=== PATIENT | male | born 1960 | race Caucasian/White ===

== ENCOUNTER 2017-06-16 01:11 | Day surgery (SDC) | payer MEDICARE, OTHER ==
[~2017-06-16 01:11] MED LIST: AMIT50 PO; ASCO1ER PO; ATOR20 PO; CIME300 PO; FLAX PO; FLONASE ALLERG9.9 ML NS; Folic Acid0.8 MG PO; GABA600 PO; GLIP5 PO; HYDCHL25 PO; HYDR1TAB94 PO; IBUP800 PO; INFLECTRA100 MG IV; LISHYD2012 PO; LISHYD2025 PO; METF500 PO; METTREX2.5 PO; MULT50L PO; MULVITMIND PO; NIAC500ER PO; OXYACE5T PO; Omeprazole20 M1 PO; PROM25 PO; Remicade100 MG IV; SULF500 PO; TOCO1000 PO; Tylenol325 MG PO; VITB100 PO; WATER PILL
== END 2017-06-16 10:08 | disposition home or self-care (01) ==
LOC: ATC 01:11
DX: L40.52 Psoriatic arthritis mutilans (principal); I10 Essential (primary) hypertension; E11.9 Type 2 diabetes mellitus without complications
CPT/HCPCS: 96375; 96413; J1745; J2930; J7050; Q0163; Q5102-ZB

== ENCOUNTER 2017-07-21 00:19 | Day surgery (SDC) | payer MEDICARE, OTHER ==
[2017-07-21] MEDS ORDERED: Remicade100 MG IV (08:16)
[2017-07-21] MEDS ORDERED: DIPH50 PO (08:23)
[2017-07-21] MEDS ORDERED: SOLU-MEDRO125 MG/2 M IV (08:24)
== END 2017-07-21 09:31 | disposition home or self-care (01) ==
LOC: ATC 00:19
DX: L40.52 Psoriatic arthritis mutilans (principal); I10 Essential (primary) hypertension; E11.9 Type 2 diabetes mellitus without complications
CPT/HCPCS: 96375; 96413; J1745; J2930; J7050; Q0163

== ENCOUNTER 2017-08-25 00:46 | Day surgery (SDC) | payer MEDICARE, OTHER ==
[~2017-08-25 00:46] MED LIST changes: +DIPH50 PO; +SOLU-MEDRO125 MG/2 M IV
== END 2017-08-25 09:40 | disposition home or self-care (01) ==
LOC: ATC 00:46
DX: L40.52 Psoriatic arthritis mutilans (principal); I10 Essential (primary) hypertension; E11.9 Type 2 diabetes mellitus without complications
CPT/HCPCS: 96375; 96413; J1745; J2930; J7050; Q0163

== ENCOUNTER 2017-10-13 11:37 | Day surgery (SDC) | payer MEDICARE, OTHER ==
[~2017-10-13] VITALS: Ht 180.3 cm; Wt 113.0 kg
== END 2017-10-13 13:46 | disposition home or self-care (01) ==
LOC: ORSCSDS 11:37
PROVIDERS: Internal Medicine Gastroenterology
PROC: 0DBN8ZX Excision of Sigmoid Colon, Via Natural or Artificial Opening Endoscopic, Diagnostic (ICD-10-PCS; principal; 2017-10-13 13:00)
PROC: 0DBK8ZX Excision of Ascending Colon, Via Natural or Artificial Opening Endoscopic, Diagnostic (ICD-10-PCS; principal; 2017-10-13 13:00)
PROC: 0DBE8ZX Excision of Large Intestine, Via Natural or Artificial Opening Endoscopic, Diagnostic (ICD-10-PCS; principal; 2017-10-13 13:00)
PROC: 0DBL8ZX Excision of Transverse Colon, Via Natural or Artificial Opening Endoscopic, Diagnostic (ICD-10-PCS; principal; 2017-10-13 13:00)
DX: R19.7 Diarrhea, unspecified (principal); D12.2 Benign neoplasm of ascending colon; D12.3 Benign neoplasm of transverse colon; D12.5 Benign neoplasm of sigmoid colon; K52.832 Lymphocytic colitis; K64.8 Other hemorrhoids; K57.30 Diverticulosis of large intestine without perforation or abscess without bleeding; E11.40 Type 2 diabetes mellitus with diabetic neuropathy, unspecified; I10 Essential (primary) hypertension; E78.5 Hyperlipidemia, unspecified; G47.33 Obstructive sleep apnea (adult) (pediatric); F41.8 Other specified anxiety disorders; M06.9 Rheumatoid arthritis, unspecified; F17.210 Nicotine dependence, cigarettes, uncomplicated; Z79.84 Long term (current) use of oral hypoglycemic drugs; Z79.899 Other long term (current) drug therapy; E66.9 Obesity, unspecified; Z68.39 Body mass index [BMI] 39.0-39.9, adult
CPT/HCPCS: 82947; 88305; J2250; J7120

== ENCOUNTER 2017-11-03 00:37 | Day surgery (SDC) | payer MEDICARE, OTHER ==
[2017-11-03] MEDS ORDERED: BUDE.25 PO (07:58)
== END 2017-11-03 09:36 | disposition home or self-care (01) ==
LOC: ATC 00:37
DX: L40.52 Psoriatic arthritis mutilans (principal); I10 Essential (primary) hypertension; E11.9 Type 2 diabetes mellitus without complications
CPT/HCPCS: 96375; 96413; J1745; J2930; J7050; Q0163

== ENCOUNTER 2018-06-01 00:08 | Day surgery (SDC) | payer MEDICARE, OTHER ==
[~2018-06-01 00:08] MED LIST changes: +BUDE.25 PO
== END 2018-06-01 09:15 | disposition home or self-care (01) ==
LOC: ATC 00:08
DX: L40.52 Psoriatic arthritis mutilans (principal); I10 Essential (primary) hypertension; E11.9 Type 2 diabetes mellitus without complications; Z79.84 Long term (current) use of oral hypoglycemic drugs
CPT/HCPCS: 96375; 96413; J1745; J2930; J7050; Q0163

== ENCOUNTER 2018-07-06 00:01 | Day surgery (SDC) | payer MEDICARE, OTHER ==
[2018-07-06] MEDS ORDERED: Co Q-10100 MG PO (08:17)
[2018-07-06] MEDS ORDERED: ASPI81CH PO (08:18)
[2018-07-06] MEDS ORDERED: ATOR20 PO (08:19)
== END 2018-07-06 08:30 | disposition home or self-care (01) ==
LOC: ATC 00:01
DX: L40.52 Psoriatic arthritis mutilans (principal); I10 Essential (primary) hypertension; E11.9 Type 2 diabetes mellitus without complications; Z79.84 Long term (current) use of oral hypoglycemic drugs
CPT/HCPCS: 96375; 96413; J1745; J2930; J7050; Q0163

== ENCOUNTER 2018-11-23 00:09 | Day surgery (SDC) | payer MEDICARE, OTHER ==
[~2018-11-23 00:09] MED LIST changes: +ASPI81CH PO; +Co Q-10100 MG PO; +Metformin HCl500 MG PO; +Tylophen500 MG PO; +ZESTRIL40 MG PO; +Zestril30 MG PO
== END 2018-11-23 09:28 | disposition home or self-care (01) ==
LOC: ATC 00:09
DX: L40.52 Psoriatic arthritis mutilans (principal); I10 Essential (primary) hypertension; E11.9 Type 2 diabetes mellitus without complications; K76.0 Fatty (change of) liver, not elsewhere classified
CPT/HCPCS: 96375; 96413; J1745; J2930; J7050; Q0163

== ENCOUNTER 2018-12-28 00:04 | Day surgery (SDC) | payer MEDICARE, OTHER | END 2018-12-28 09:28 | disposition home or self-care (01) | LOC: ATC 00:04 | DX: L40.52 Psoriatic arthritis mutilans (principal); I10 Essential (primary) hypertension; E11.9 Type 2 diabetes mellitus without complications; Z79.84 Long term (current) use of oral hypoglycemic drugs; Z79.899 Other long term (current) drug therapy | CPT/HCPCS: 96375; 96413; J1745; J2930; J7050; Q0163 ==

== ENCOUNTER 2019-02-01 00:19 | Day surgery (SDC) | payer MEDICARE, OTHER | END 2019-02-01 09:17 | disposition home or self-care (01) | LOC: ATC 00:19 | DX: L40.52 Psoriatic arthritis mutilans (principal); I10 Essential (primary) hypertension; E11.9 Type 2 diabetes mellitus without complications | CPT/HCPCS: 96374; 96375; 96413; J1745; J2930; J7050; Q0163 ==

== ENCOUNTER 2019-03-08 00:10 | Day surgery (SDC) | payer MEDICARE, OTHER | END 2019-03-08 09:30 | disposition home or self-care (01) | LOC: ATC 00:10 | DX: L40.52 Psoriatic arthritis mutilans (principal); I10 Essential (primary) hypertension; E11.9 Type 2 diabetes mellitus without complications | CPT/HCPCS: 96374; 96375; 96413; J1745; J2930; J7050; Q0163 ==

== ENCOUNTER 2019-05-17 00:16 | Day surgery (SDC) | payer MEDICARE, OTHER | END 2019-05-17 10:52 | disposition home or self-care (01) | LOC: ATC 00:16 | DX: L40.52 Psoriatic arthritis mutilans (principal); I10 Essential (primary) hypertension; E11.9 Type 2 diabetes mellitus without complications; Z79.82 Long term (current) use of aspirin; Z79.84 Long term (current) use of oral hypoglycemic drugs; Z79.899 Other long term (current) drug therapy | CPT/HCPCS: 96375; 96413; J1745; J2930; J7050; Q0163 ==

== ENCOUNTER 2019-06-21 00:08 | Day surgery (SDC) | payer MEDICARE, OTHER | END 2019-06-21 09:41 | disposition home or self-care (01) | LOC: ATC 00:08 | DX: L40.50 Arthropathic psoriasis, unspecified (principal); I10 Essential (primary) hypertension; E11.9 Type 2 diabetes mellitus without complications; Z79.82 Long term (current) use of aspirin; Z79.84 Long term (current) use of oral hypoglycemic drugs; Z79.899 Other long term (current) drug therapy; Z88.6 Allergy status to analgesic agent | CPT/HCPCS: 96375; 96413; J1745; J2930; J7050; Q0163 ==

== ENCOUNTER 2019-08-30 00:05 | Day surgery (SDC) | payer MEDICARE, OTHER | END 2019-08-30 09:40 | disposition home or self-care (01) | LOC: ATC 00:05 | DX: L40.52 Psoriatic arthritis mutilans (principal); I10 Essential (primary) hypertension; E11.9 Type 2 diabetes mellitus without complications; K76.0 Fatty (change of) liver, not elsewhere classified; Z79.84 Long term (current) use of oral hypoglycemic drugs; Z79.899 Other long term (current) drug therapy | CPT/HCPCS: 96375; 96413; J1745; J2930; J7050; Q0163 ==

== ENCOUNTER 2019-11-08 | Day surgery (SDC) | payer MEDICARE, OTHER ==
[~2019-11-08] MED LIST changes: +ACET500 PO; +Hair, Skin & N1 EACH PO; -MULVITMIND PO; -Tylophen500 MG PO
== END 2019-11-08 10:00 | disposition home or self-care (01) ==
LOC: ATC
DX: L40.52 Psoriatic arthritis mutilans (principal); I10 Essential (primary) hypertension; E11.9 Type 2 diabetes mellitus without complications; Z79.84 Long term (current) use of oral hypoglycemic drugs; Z79.82 Long term (current) use of aspirin; Z79.899 Other long term (current) drug therapy
CPT/HCPCS: 96375; 96413; J1745; J2930; J7050; Q0163

== ENCOUNTER 2020-02-21 00:15 | Day surgery (SDC) | payer MEDICARE, OTHER | END 2020-02-21 09:50 | disposition home or self-care (01) | LOC: ATC 00:15 | DX: L40.52 Psoriatic arthritis mutilans (principal); I10 Essential (primary) hypertension; E11.9 Type 2 diabetes mellitus without complications; Z79.899 Other long term (current) drug therapy; Z79.82 Long term (current) use of aspirin; Z79.84 Long term (current) use of oral hypoglycemic drugs | CPT/HCPCS: 96375; 96413; J1745; J2930; J7050; Q0163 ==

== ENCOUNTER 2020-03-27 00:34 | Day surgery (SDC) | payer MEDICARE, OTHER | END 2020-03-27 09:35 | disposition home or self-care (01) | LOC: ATC 00:34 | DX: L40.52 Psoriatic arthritis mutilans (principal); I10 Essential (primary) hypertension; E11.9 Type 2 diabetes mellitus without complications; Z79.84 Long term (current) use of oral hypoglycemic drugs; Z79.899 Other long term (current) drug therapy; Z79.82 Long term (current) use of aspirin | CPT/HCPCS: 96375; 96413; J1745; J2930; J7050; Q0163 ==

== ENCOUNTER 2020-05-01 00:48 | Day surgery (SDC) | payer MEDICARE, OTHER | END 2020-05-01 09:28 | disposition home or self-care (01) | LOC: ATC 00:48 | DX: L40.52 Psoriatic arthritis mutilans (principal); I10 Essential (primary) hypertension; E11.9 Type 2 diabetes mellitus without complications; K76.0 Fatty (change of) liver, not elsewhere classified; Z79.84 Long term (current) use of oral hypoglycemic drugs; Z79.52 Long term (current) use of systemic steroids; Z79.82 Long term (current) use of aspirin; Z79.899 Other long term (current) drug therapy; Z88.6 Allergy status to analgesic agent | CPT/HCPCS: 96375; 96413; J1745; J2930; J7050; Q0163 ==

== ENCOUNTER 2020-06-05 05:38 | Day surgery (SDC) | payer MEDICARE, OTHER | END 2020-06-05 09:05 | disposition home or self-care (01) | LOC: ATC 05:38 | DX: L40.52 Psoriatic arthritis mutilans (principal); I10 Essential (primary) hypertension; E11.9 Type 2 diabetes mellitus without complications; Z88.6 Allergy status to analgesic agent; Z79.84 Long term (current) use of oral hypoglycemic drugs; Z79.82 Long term (current) use of aspirin; Z79.899 Other long term (current) drug therapy | CPT/HCPCS: 96375; 96413; J1745; J2930; J7050; Q0163 ==

== ENCOUNTER 2020-07-10 00:04 | Day surgery (SDC) | payer MEDICARE, OTHER ==
[2020-10-09] MEDS ORDERED: Aspir 8181 MG PO (14:14)
[2020-10-09] MEDS ORDERED: FOLI1 PO (14:14)
== END 2020-07-10 09:30 | disposition home or self-care (01) ==
LOC: ATC 00:04
DX: L40.52 Psoriatic arthritis mutilans (principal); I10 Essential (primary) hypertension; G56.00 Carpal tunnel syndrome, unspecified upper limb; E11.9 Type 2 diabetes mellitus without complications; K76.0 Fatty (change of) liver, not elsewhere classified; Z79.899 Other long term (current) drug therapy
CPT/HCPCS: 96375; 96413; A9270; J1745; J2930; J7050

== ENCOUNTER 2020-08-14 07:36 | Day surgery (SDC) | payer MEDICARE, OTHER ==
[2020-08-14] MEDS ORDERED: ALBU90OI INH (07:52)
[2020-08-14] MEDS ORDERED: STIOLTO RESPIMAT4 G1 INH (07:52)
[2020-08-14] MEDS ORDERED: Chantix1 MG PO (07:52)
[2020-10-09] MEDS ORDERED: FOLI1 PO (14:14)
[2020-10-09] MEDS ORDERED: Aspir 8181 MG PO (14:14)
== END 2020-08-14 09:37 | disposition home or self-care (01) ==
LOC: ATC 07:36
DX: L40.50 Arthropathic psoriasis, unspecified (principal); I10 Essential (primary) hypertension; E11.9 Type 2 diabetes mellitus without complications; Z79.84 Long term (current) use of oral hypoglycemic drugs; Z79.82 Long term (current) use of aspirin
CPT/HCPCS: 96375; 96413; A9270; J1745; J2930; J7050

== ENCOUNTER 2020-09-18 | Day surgery (SDC) | payer MEDICARE, OTHER ==
[~2020-09-18] MED LIST changes: +ALBU90OI INH; +Chantix1 MG PO; +STIOLTO RESPIMAT4 G1 INH
[2020-10-09] MEDS ORDERED: FOLI1 PO (14:14)
[2020-10-09] MEDS ORDERED: Aspir 8181 MG PO (14:14)
== END 2020-09-18 09:25 | disposition home or self-care (01) ==
LOC: ATC
DX: L40.52 Psoriatic arthritis mutilans (principal); I10 Essential (primary) hypertension; E11.9 Type 2 diabetes mellitus without complications
CPT/HCPCS: 96375; 96413; A9270; J1745; J2930; J7050

== ENCOUNTER 2020-10-16 09:40 | Day surgery (SDC) | payer MEDICARE, OTHER ==
[~2020-10-16] VITALS: Ht 180.3 cm; Wt 116.8 kg
[~2020-10-16 09:40] MED LIST changes: +Aspir 8181 MG PO; +FOLI1 PO
== END 2020-10-16 12:00 | disposition home or self-care (01) ==
LOC: ORSCSDS 09:40
PROVIDERS: Internal Medicine Gastroenterology
PROC: 0DBL8ZX Excision of Transverse Colon, Via Natural or Artificial Opening Endoscopic, Diagnostic (ICD-10-PCS; principal; 2020-10-16 11:00)
PROC: 0DBM8ZX Excision of Descending Colon, Via Natural or Artificial Opening Endoscopic, Diagnostic (ICD-10-PCS; principal; 2020-10-16 11:00)
DX: Z12.11 Encounter for screening for malignant neoplasm of colon (principal); Z86.010 Personal history of colon polyps; D12.3 Benign neoplasm of transverse colon; D12.4 Benign neoplasm of descending colon; K57.30 Diverticulosis of large intestine without perforation or abscess without bleeding; K64.1 Second degree hemorrhoids; I10 Essential (primary) hypertension; J44.9 Chronic obstructive pulmonary disease, unspecified; G47.33 Obstructive sleep apnea (adult) (pediatric); F17.210 Nicotine dependence, cigarettes, uncomplicated; E11.40 Type 2 diabetes mellitus with diabetic neuropathy, unspecified; K76.0 Fatty (change of) liver, not elsewhere classified; Z79.84 Long term (current) use of oral hypoglycemic drugs; Z79.899 Other long term (current) drug therapy; E66.9 Obesity, unspecified; Z68.35 Body mass index [BMI] 35.0-35.9, adult
CPT/HCPCS: 82947; 88305; J2250; J2704; J7120

== ENCOUNTER 2020-10-23 00:16 | Day surgery (SDC) | payer MEDICARE, OTHER ==
[~2020-10-23] VITALS: Wt 113.6 kg
== END 2020-10-23 09:28 | disposition home or self-care (01) ==
LOC: ATC 00:16
DX: L40.52 Psoriatic arthritis mutilans (principal); I10 Essential (primary) hypertension; E11.9 Type 2 diabetes mellitus without complications; Z79.84 Long term (current) use of oral hypoglycemic drugs; Z79.82 Long term (current) use of aspirin; Z79.899 Other long term (current) drug therapy
CPT/HCPCS: 96375; 96413; A9270; J1745; J2930; J7050

== ENCOUNTER 2020-11-27 04:47 | Day surgery (SDC) | payer MEDICARE, OTHER | END 2020-11-27 09:15 | disposition home or self-care (01) | LOC: ATC 04:47 | DX: L40.50 Arthropathic psoriasis, unspecified (principal); I10 Essential (primary) hypertension; E11.9 Type 2 diabetes mellitus without complications; Z79.84 Long term (current) use of oral hypoglycemic drugs; Z79.82 Long term (current) use of aspirin; Z79.899 Other long term (current) drug therapy | CPT/HCPCS: 96375; 96413; A9270; J1200; J1745; J2930; J7050 ==

== ENCOUNTER 2021-01-01 02:38 | Day surgery (SDC) | payer MEDICARE, OTHER ==
--- NOTE | 2021-01-01 10:43 | NUR ---
REMICADE: PT GETS LARGE DOSE OF REMICADE USUALLY IN A 250 ML NS BAG, PHARMACY MADE IT IN A 500 ML NS BAG TODAY AND PT GOT EXTREMELY AGITATED AND STARTED YELLING, PHARMACY INFORMED THIS RN THAT NEW PROTOCOLS FOR HIGH CONCENTRATION/DOSES OF REMICADE SHOULD BE DILUTED INTO A BIGGER AMOUNT OF NS. INFORMED PT OF THIS AND ALSO CALLED DR TO GET CLARIFICATION, CLARIFICATION WRITTEN ON ORDER, INFORMED PT BUT HE CONTINUED TO BE IRATE, INFORMED HIM THAT HE NEEDED TO QUIT YELLING AT THIS RN AND KEEP HIS VOICE DOWN OR I WOULD HAVE TO CALL SECURITY. ALSO INFORMED HIM THAT WE ALL (PHARMACY AND MYSELF) ARE LOOKING OUT FOR HIS BEST INTEREST AND WE WANT TO TAKE CARE OF HIM TO OUR BEST ABILITY. ALSO WAS TELLING PT TO CALM DOWN. PT DID CALM DOWN BUT STATED HE WAS GOING TO FILE COMPLAINT TO PT ADVOCATE OR CAKE FROSTER OF HOSPITAL..
== END 2021-01-01 09:35 | disposition home or self-care (01) ==
LOC: ATC 02:38
DX: L40.52 Psoriatic arthritis mutilans (principal); I10 Essential (primary) hypertension; E11.9 Type 2 diabetes mellitus without complications; Z79.899 Other long term (current) drug therapy; Z79.82 Long term (current) use of aspirin; Z79.84 Long term (current) use of oral hypoglycemic drugs
CPT/HCPCS: 96375; 96413; A9270; J1745; J2930; J7040

== ENCOUNTER 2021-02-05 00:22 | Day surgery (SDC) | payer MEDICARE, OTHER | END 2021-02-05 09:31 | disposition home or self-care (01) | LOC: ATC 00:22 | DX: L40.50 Arthropathic psoriasis, unspecified (principal) | CPT/HCPCS: 96375; 96413; A9270; J1745; J2930; J7040 ==

== ENCOUNTER 2021-03-12 03:12 | Day surgery (SDC) | payer MEDICARE, OTHER | END 2021-03-12 09:17 | disposition home or self-care (01) | LOC: ATC 03:12 | DX: L40.52 Psoriatic arthritis mutilans (principal) | CPT/HCPCS: 96375; 96413; 96415; A9270; J1745; J2930; J7040 ==

== ENCOUNTER 2021-04-16 02:18 | Day surgery (SDC) | payer MEDICARE, OTHER | END 2021-04-16 09:18 | disposition home or self-care (01) | LOC: ATC 02:18 | DX: L40.52 Psoriatic arthritis mutilans (principal); I10 Essential (primary) hypertension; E11.9 Type 2 diabetes mellitus without complications | CPT/HCPCS: 96375; 96413; A9270; J1745; J2930; J7040 ==

== ENCOUNTER 2021-05-21 00:17 | Day surgery (SDC) | payer MEDICARE, OTHER | END 2021-05-21 09:35 | disposition home or self-care (01) | LOC: ATC 00:17 | DX: L40.50 Arthropathic psoriasis, unspecified (principal); I10 Essential (primary) hypertension; E11.9 Type 2 diabetes mellitus without complications; Z79.84 Long term (current) use of oral hypoglycemic drugs; Z79.82 Long term (current) use of aspirin | CPT/HCPCS: A9270; J1745; J2930; J7050 ==

== ENCOUNTER 2021-07-30 00:19 | Day surgery (SDC) | payer MEDICARE, OTHER | END 2021-07-30 09:40 | disposition home or self-care (01) | LOC: ATC 00:19 | DX: L40.50 Arthropathic psoriasis, unspecified (principal); I10 Essential (primary) hypertension; E11.9 Type 2 diabetes mellitus without complications | CPT/HCPCS: A9270; J1745; J2930; J7050 ==

== ENCOUNTER 2021-10-08 01:01 | Day surgery (SDC) | payer MEDICARE, OTHER | END 2021-10-08 09:47 | disposition home or self-care (01) | LOC: ATC 01:01 | DX: L40.50 Arthropathic psoriasis, unspecified (principal); I10 Essential (primary) hypertension; E11.9 Type 2 diabetes mellitus without complications | CPT/HCPCS: A9270; J2930; J7050; Q5104 ==

== ENCOUNTER 2021-11-14 03:06 | Day surgery (SDC) | payer MEDICARE, OTHER ==
[~2021-11-14] VITALS: Wt 108.0 kg
[2021-11-14] MEDS ORDERED: RENFLEXIS100 M4 IV (08:07)
== END 2021-11-14 09:14 | disposition home or self-care (01) ==
LOC: ATC 03:06
DX: L40.50 Arthropathic psoriasis, unspecified (principal); I10 Essential (primary) hypertension; E11.9 Type 2 diabetes mellitus without complications; Z79.84 Long term (current) use of oral hypoglycemic drugs; Z79.899 Other long term (current) drug therapy
CPT/HCPCS: A9270; J2930; J7050; Q5104

== ENCOUNTER 2021-12-10 01:29 | Day surgery (SDC) | payer MEDICARE, OTHER ==
[~2021-12-10] VITALS: Wt 109.0 kg
[~2021-12-10 01:29] MED LIST changes: +RENFLEXIS100 M4 IV
== END 2021-12-10 09:40 | disposition home or self-care (01) ==
LOC: ATC 01:29
DX: L40.50 Arthropathic psoriasis, unspecified (principal); E11.9 Type 2 diabetes mellitus without complications; Z79.82 Long term (current) use of aspirin; Z79.84 Long term (current) use of oral hypoglycemic drugs; Z79.899 Other long term (current) drug therapy
CPT/HCPCS: 96375; 96413; A9270; J2930; J7040; J7050; Q5104

== ENCOUNTER 2022-02-04 01:45 | Day surgery (SDC) | payer MEDICARE, OTHER ==
[~2022-02-04] VITALS: Wt 108.1 kg
== END 2022-02-04 09:47 | disposition home or self-care (01) ==
LOC: ATC 01:45
DX: L40.50 Arthropathic psoriasis, unspecified (principal); I10 Essential (primary) hypertension; E11.9 Type 2 diabetes mellitus without complications; Z79.84 Long term (current) use of oral hypoglycemic drugs; Z79.899 Other long term (current) drug therapy
CPT/HCPCS: 96413; A9270; J7050; Q5104

== ENCOUNTER 2022-04-01 02:19 | Day surgery (SDC) | payer MEDICARE, OTHER ==
[2022-04-01] MEDS ORDERED: REPA2 (07:41)
== END 2022-04-01 09:48 | disposition home or self-care (01) ==
LOC: ATC 02:19
DX: L40.50 Arthropathic psoriasis, unspecified (principal); I10 Essential (primary) hypertension; E11.9 Type 2 diabetes mellitus without complications; Z79.84 Long term (current) use of oral hypoglycemic drugs
CPT/HCPCS: A9270; J2930; J7040; Q5104

== ENCOUNTER → 2022-04-28 | Outpatient (CLI) | payer MEDICARE, OTHER ==
[~2022-04-28] MED LIST changes: +REPA2 PO
[2022-05-02 09:11] LABS: HSV-1 DNA Negative (Negative); HSV-2 DNA Positive (Negative)
== END ==
LOC: LAB SHORT 10:06 → LAB 10:06
PROVIDERS: Physician Assistant Medical
DX: R21 Rash and other nonspecific skin eruption (principal)
CPT/HCPCS: 87529; 87798

== ENCOUNTER 2022-04-29 00:35 | Day surgery (SDC) | payer MEDICARE, OTHER ==
[2022-04-30 10:11] LABS: HBSAG SCREEN Negative (Negative); HCV ANTIBODY <0.1 (0.0-0.9)
[2022-05-02 15:11] LABS: QUANTIFERON MITOGEN VALUE >10.00 IU/mL (.); QUANTIFERON NIL VALUE 0.02 IU/mL (.); QUANTIFERON TB1 AG VALUE 0.01 IU/mL (.); QUANTIFERON TB2 AG VALUE 0.01 IU/mL (.); QUANTIFERON-TB GOLD PLUS Negative (Negative)
== END 2022-04-29 09:25 | disposition home or self-care (01) ==
LOC: ATC 00:35
PROVIDERS: Internal Medicine Rheumatology
DX: L40.50 Arthropathic psoriasis, unspecified (principal); I10 Essential (primary) hypertension; E11.9 Type 2 diabetes mellitus without complications
CPT/HCPCS: 86480; 86803; 87340; 96375; 96413; A9270; J2930; J7050; Q5104

== ENCOUNTER 2022-05-27 00:28 | Day surgery (SDC) | payer MEDICARE, OTHER ==
[~2022-05-27] VITALS: Wt 108.3 kg
== END 2022-05-27 09:09 | disposition home or self-care (01) ==
LOC: ATC 00:28
DX: L40.50 Arthropathic psoriasis, unspecified (principal); E11.9 Type 2 diabetes mellitus without complications; K76.0 Fatty (change of) liver, not elsewhere classified
CPT/HCPCS: 96375; 96413; A9270; J2930; J7050; Q5104

== ENCOUNTER 2022-06-24 03:32 | Day surgery (SDC) | payer MEDICARE, OTHER ==
[2022-06-24] MEDS ORDERED: INSULANPEN SC (07:45)
== END 2022-06-24 09:22 | disposition home or self-care (01) ==
LOC: ATC 03:32
DX: L40.50 Arthropathic psoriasis, unspecified (principal); I10 Essential (primary) hypertension; E11.9 Type 2 diabetes mellitus without complications; Z79.84 Long term (current) use of oral hypoglycemic drugs; Z79.82 Long term (current) use of aspirin; Z79.891 Long term (current) use of opiate analgesic; Z79.899 Other long term (current) drug therapy
CPT/HCPCS: 96375; 96413; A9270; J2930; J7050; Q5104

== ENCOUNTER 2022-07-10 06:12 | Day surgery (SDC) | payer MEDICARE, OTHER ==
[~2022-07-10] VITALS: Ht 180.3 cm; Wt 106.3 kg
[~2022-07-10 06:12] MED LIST changes: +INSULANPEN SC
--- NOTE | 2022-07-10 08:12 | NUR ---
07/10/22 0812 Rowdy Pelayo TAP BLOCK PLACED IN OR BY DR. VALERIO WITHOUT DIFFICULTY. PT TOLERATED PROCEDURE WELL.
== END 2022-07-10 10:15 | disposition home or self-care (01) ==
LOC: ORSCSDS 06:12
PROVIDERS: Surgery
PROC: 3E0M05Z Introduction of Adhesion Barrier into Peritoneal Cavity, Open Approach (ICD-10-PCS; principal; 2022-07-10 07:30)
PROC: 0YU50JZ Supplement Right Inguinal Region with Synthetic Substitute, Open Approach (ICD-10-PCS; principal; 2022-07-10 07:30)
DX: K40.90 Unilateral inguinal hernia, without obstruction or gangrene, not specified as recurrent (principal); I10 Essential (primary) hypertension; G47.33 Obstructive sleep apnea (adult) (pediatric); J44.9 Chronic obstructive pulmonary disease, unspecified; F17.210 Nicotine dependence, cigarettes, uncomplicated; E11.40 Type 2 diabetes mellitus with diabetic neuropathy, unspecified; Z79.84 Long term (current) use of oral hypoglycemic drugs; Z79.899 Other long term (current) drug therapy
CPT/HCPCS: 82947; A9270; C1781; J0690; J1100; J2405; J2704; J2795; J3010; J7120

== ENCOUNTER 2022-07-22 00:28 | Day surgery (SDC) | payer MEDICARE, OTHER ==
[~2022-07-22] VITALS: Wt 106.6 kg
== END 2022-07-22 09:40 | disposition home or self-care (01) ==
LOC: ATC 00:28
DX: L40.50 Arthropathic psoriasis, unspecified (principal); J44.9 Chronic obstructive pulmonary disease, unspecified; E11.51 Type 2 diabetes mellitus with diabetic peripheral angiopathy without gangrene; E78.5 Hyperlipidemia, unspecified; I10 Essential (primary) hypertension; E66.9 Obesity, unspecified; K40.90 Unilateral inguinal hernia, without obstruction or gangrene, not specified as recurrent; F17.210 Nicotine dependence, cigarettes, uncomplicated; Z79.4 Long term (current) use of insulin; Z79.899 Other long term (current) drug therapy
CPT/HCPCS: A9270; J2930; J7050; Q5104

== ENCOUNTER 2022-08-19 02:32 | Day surgery (SDC) | payer MEDICARE, OTHER | END 2022-08-19 09:37 | disposition home or self-care (01) | LOC: ATC 02:32 | DX: K40.90 Unilateral inguinal hernia, without obstruction or gangrene, not specified as recurrent (principal); L40.50 Arthropathic psoriasis, unspecified; J44.9 Chronic obstructive pulmonary disease, unspecified; E78.5 Hyperlipidemia, unspecified; I10 Essential (primary) hypertension; E11.9 Type 2 diabetes mellitus without complications; Z79.4 Long term (current) use of insulin; Z79.84 Long term (current) use of oral hypoglycemic drugs; F17.210 Nicotine dependence, cigarettes, uncomplicated | CPT/HCPCS: 96375; 96413; A9270; J2930; J7050; Q5104 ==

== ENCOUNTER 2022-11-11 03:28 | Day surgery (SDC) | payer MEDICARE, OTHER ==
[~2022-11-11 03:28] MED LIST changes: +FURO20 PO
[2022-11-11 07:32] VITALS: BP 156/86
[2022-11-11] MEDS ORDERED: LISINOPRIL-HCT1 EACH PO (08:34)
[2022-11-11] MEDS ORDERED: SOLU-MEDRO1000 MG/1 IV (08:36)
== END 2022-11-11 09:17 | disposition home or self-care (01) ==
LOC: ATC 03:28
DX: L40.50 Arthropathic psoriasis, unspecified (principal); I10 Essential (primary) hypertension; E11.9 Type 2 diabetes mellitus without complications; Z79.82 Long term (current) use of aspirin; Z79.899 Other long term (current) drug therapy
CPT/HCPCS: 96375; 96413; A9270; J2930; J7050; Q5104

== ENCOUNTER 2023-01-06 01:37 | Day surgery (SDC) | payer MEDICARE, OTHER ==
[~2023-01-06 01:37] MED LIST changes: +ATOR10 PO; +Colace100 MG PO; +LIDO700A20 TOP; +LISINOPRIL-HCT1 EACH PO; +Percocet 5-3251 EACH PO; +SOLU-MEDRO1000 MG/1 IV
[2023-01-06 07:48] VITALS: BP 131/70
== END 2023-01-06 09:53 | disposition home or self-care (01) ==
LOC: ATC 01:37
DX: L40.50 Arthropathic psoriasis, unspecified (principal); I10 Essential (primary) hypertension; E11.9 Type 2 diabetes mellitus without complications; Z79.84 Long term (current) use of oral hypoglycemic drugs; Z79.82 Long term (current) use of aspirin; Z79.899 Other long term (current) drug therapy
CPT/HCPCS: 96375; 96413; A9270; J2930; J7050; Q5104

== ENCOUNTER 2023-02-03 02:39 | Day surgery (SDC) | payer MEDICARE, OTHER ==
[2023-02-03 07:32] VITALS: BP 131/73
== END 2023-02-03 09:48 | disposition home or self-care (01) ==
LOC: ATC 02:39
DX: L40.50 Arthropathic psoriasis, unspecified (principal); I10 Essential (primary) hypertension; E11.9 Type 2 diabetes mellitus without complications
CPT/HCPCS: 96375; 96413; A9270; J2930; J7050; Q5104

== ENCOUNTER 2023-03-31 05:27 | Day surgery (SDC) | payer MEDICARE, OTHER ==
[2023-03-31 07:31] VITALS: BP 136/72
== END 2023-03-31 09:11 | disposition home or self-care (01) ==
LOC: ATC 05:27
DX: L40.50 Arthropathic psoriasis, unspecified (principal); I10 Essential (primary) hypertension; E11.9 Type 2 diabetes mellitus without complications
CPT/HCPCS: 96375; 96413; A9270; J2920; J7050; Q5104

== ENCOUNTER 2023-04-28 06:05 | Day surgery (SDC) | payer MEDICARE, OTHER ==
[2023-04-28 07:59] VITALS: BP 133/70
== END 2023-04-28 09:55 | disposition home or self-care (01) ==
LOC: ATC 06:05
DX: L40.50 Arthropathic psoriasis, unspecified (principal)
CPT/HCPCS: 96375; 96413; A9270; J2930; J7050; Q5104

== ENCOUNTER 2023-06-24 01:22 | Day surgery (SDC) | payer MEDICARE, OTHER ==
[2023-06-24 07:44] VITALS: BP 133/69
== END 2023-06-24 09:15 | disposition home or self-care (01) ==
LOC: ATC 01:22
DX: L40.50 Arthropathic psoriasis, unspecified (principal); I10 Essential (primary) hypertension; E11.9 Type 2 diabetes mellitus without complications; Z79.84 Long term (current) use of oral hypoglycemic drugs; Z79.899 Other long term (current) drug therapy
CPT/HCPCS: 96375; 96413; A9270; J2930; J7050; Q5104

== ENCOUNTER 2023-09-15 02:47 | Day surgery (SDC) | payer MEDICARE, OTHER ==
[2023-09-15] MEDS ORDERED: DiphenhydrAMINE HCL 25 MG Cap PO SCH (06:40)
[2023-09-15] MEDS ORDERED: MethylPREDNISolone Sod Succ 40 MG VIAL IV SCH (06:40)
[2023-09-15 07:42] VITALS: BP 124/73
[2023-09-15] MEDS ORDERED: NS IV SCH (07:50)
[2023-09-15] MEDS ORDERED: INFLIXIMAB ABDA IV SCH (07:50)
[2023-09-15 09:44] VITALS: BP 145/81
== END 2023-09-15 09:46 | disposition home or self-care (01) ==
LOC: ATC 02:47
DX: L40.50 Arthropathic psoriasis, unspecified (principal); I10 Essential (primary) hypertension; E11.9 Type 2 diabetes mellitus without complications; G56.00 Carpal tunnel syndrome, unspecified upper limb
CPT/HCPCS: 96375; 96413; A9270; J2920; J7050; Q5104

== ENCOUNTER 2023-10-13 03:17 | Day surgery (SDC) | payer MEDICARE, OTHER ==
[2023-10-13] MEDS ORDERED: MethylPREDNISolone Sod Succ 125 MG Vial IV SCH (07:05)
[2023-10-13] MEDS ORDERED: DiphenhydrAMINE HCL 25 MG Cap PO SCH (07:05)
[2023-10-13 07:52] VITALS: BP 137/68
[2023-10-13] MEDS ORDERED: INFLIXIMAB ABDA IV SCH (07:55)
[2023-10-13] MEDS ORDERED: NS IV SCH (07:55)
[2023-10-14 17:39] LABS: HEPATITIS C AB CIA INTERP Negative (Negative); HEPATITIS C ANTIBODY CIA INDEX 0.07 IV
[2023-10-14 18:26] LABS: HEPATITIS B SURFACE ANTIBODY <3.10 IU/L
[2023-10-16 16:03] LABS: QUANTIFERON MITOGEN MINUS NIL >10.00 IU/mL; QUANTIFERON NIL 0.01 IU/mL; QUANTIFERON TB GOLD PLUS Negative (Negative)
== END 2023-10-13 09:42 | disposition home or self-care (01) ==
LOC: ATC 03:17
PROVIDERS: Internal Medicine Rheumatology
DX: L40.50 Arthropathic psoriasis, unspecified (principal); I10 Essential (primary) hypertension; E11.9 Type 2 diabetes mellitus without complications; Z79.84 Long term (current) use of oral hypoglycemic drugs; Z79.899 Other long term (current) drug therapy
CPT/HCPCS: 86803; 96375; 96413; A9270; J2930; J7050; Q5104

== ENCOUNTER 2024-02-02 05:55 | Day surgery (SDC) | payer OTHER ==
[~2024-02-02] VITALS: Wt 108.1 kg
[2024-02-02] MEDS ORDERED: DiphenhydrAMINE HCL 25 MG Cap PO SCH (06:55)
[2024-02-02] MEDS ORDERED: MethylPREDNISolone Sod Succ 125 MG Vial IV SCH (06:55)
[2024-02-02 07:41] VITALS: BP 140/74
[2024-02-02] MEDS ORDERED: NS IV SCH (07:50)
[2024-02-02] MEDS ORDERED: INFLIXIMAB ABDA IV SCH (07:50)
== END 2024-02-02 09:33 | disposition home or self-care (01) ==
LOC: ATC 05:55
DX: L40.50 Arthropathic psoriasis, unspecified (principal); I10 Essential (primary) hypertension; Z79.899 Other long term (current) drug therapy
CPT/HCPCS: 96375; 96413; 96415; A9270; J2919; J7050; Q5104

== ENCOUNTER 2024-03-01 01:33 | Day surgery (SDC) | payer OTHER ==
[~2024-03-01] VITALS: Wt 109.8 kg
[2024-03-01] MEDS ORDERED: DiphenhydrAMINE HCL 25 MG Cap PO SCH (07:05)
[2024-03-01] MEDS ORDERED: MethylPREDNISolone Sod Succ 125 MG Vial IV SCH (07:05)
[2024-03-01 07:40] VITALS: BP 161/79
[2024-03-01] MEDS ORDERED: NS IV SCH (08:10)
[2024-03-01] MEDS ORDERED: INFLIXIMAB ABDA IV SCH (08:10)
== END 2024-03-01 10:10 | disposition home or self-care (01) ==
LOC: ATC 01:33
DX: L40.50 Arthropathic psoriasis, unspecified (principal); I10 Essential (primary) hypertension; E11.9 Type 2 diabetes mellitus without complications
CPT/HCPCS: 96375; 96413; A9270; J2919; J7050; Q5104

== ENCOUNTER 2024-03-29 02:41 | Day surgery (SDC) | payer OTHER ==
[~2024-03-29] VITALS: Wt 108.4 kg
[2024-03-29] MEDS ORDERED: DiphenhydrAMINE HCL 25 MG Cap PO SCH (06:55)
[2024-03-29] MEDS ORDERED: MethylPREDNISolone Sod Succ 125 MG Vial IV SCH (06:55)
[2024-03-29 07:34] VITALS: BP 144/73
[2024-03-29] MEDS ORDERED: INFLIXIMAB ABDA IV SCH (07:45)
[2024-03-29] MEDS ORDERED: NS IV SCH (07:45)
== END 2024-03-29 09:32 | disposition home or self-care (01) ==
LOC: ATC 02:41
DX: L40.50 Arthropathic psoriasis, unspecified (principal); I10 Essential (primary) hypertension; L40.9 Psoriasis, unspecified; K76.0 Fatty (change of) liver, not elsewhere classified; Z79.84 Long term (current) use of oral hypoglycemic drugs; Z79.899 Other long term (current) drug therapy
CPT/HCPCS: 96375; 96413; A9270; J2919; J7050; Q5104

== ENCOUNTER → 2024-05-09 | Outpatient (CLI) | payer OTHER ==
[2024-05-13 03:23] LABS: HSV 1 SUBTYPE BY PCR Not Detected; HSV 2 SUBTYPE BY PCR Not Detected; HSV SUBTYPE SOURCE R LOWER BACK
[2024-05-14 01:06] LABS: VARICELLA-ZOSTER VIRUS BY PCR Not Detected; VARICELLA-ZOSTER VIRUS SOURCE R LOWER BACK
== END ==
LOC: LAB SHORT 17:36 → LAB 17:36
PROVIDERS: Physician Assistant Medical
DX: R21 Rash and other nonspecific skin eruption (principal); L57.8 Other skin changes due to chronic exposure to nonionizing radiation; L82.1 Other seborrheic keratosis; D22.5 Melanocytic nevi of trunk; D22.62 Melanocytic nevi of left upper limb, including shoulder; D22.72 Melanocytic nevi of left lower limb, including hip
CPT/HCPCS: 87529; 87798

== ENCOUNTER 2024-05-24 03:39 | Day surgery (SDC) | payer OTHER ==
[2024-05-24] MEDS ORDERED: DiphenhydrAMINE HCL 25 MG Cap PO SCH (07:05)
[2024-05-24] MEDS ORDERED: MethylPREDNISolone Sod Succ 125 MG Vial IV SCH (07:05)
[2024-05-24 07:45] VITALS: BP 152/80
[2024-05-24] MEDS ORDERED: NS IV SCH (08:10)
[2024-05-24] MEDS ORDERED: INFLIXIMAB ABDA IV SCH (08:10)
== END 2024-05-24 10:01 | disposition home or self-care (01) ==
LOC: ATC 03:39
DX: L40.50 Arthropathic psoriasis, unspecified (principal); I10 Essential (primary) hypertension; Z79.84 Long term (current) use of oral hypoglycemic drugs; E11.9 Type 2 diabetes mellitus without complications; Z79.899 Other long term (current) drug therapy
CPT/HCPCS: 96375; 96413; A9270; J2919; J7050; Q5104

== ENCOUNTER 2024-06-21 03:41 | Day surgery (SDC) | payer OTHER ==
[2024-06-21] MEDS ORDERED: MethylPREDNISolone Sod Succ 125 MG Vial IV SCH (07:05)
[2024-06-21] MEDS ORDERED: DiphenhydrAMINE HCL 25 MG Cap PO PRN (07:05)
[2024-06-21 07:48] VITALS: BP 156/75
[2024-06-21] MEDS ORDERED: INFLIXIMAB ABDA IV SCH (07:55)
[2024-06-21] MEDS ORDERED: NS IV SCH (07:55)
== END 2024-06-21 09:30 | disposition home or self-care (01) ==
LOC: ATC 03:41
DX: L40.50 Arthropathic psoriasis, unspecified (principal); I10 Essential (primary) hypertension; E11.9 Type 2 diabetes mellitus without complications; Z79.84 Long term (current) use of oral hypoglycemic drugs; Z79.899 Other long term (current) drug therapy
CPT/HCPCS: 96375; 96413; A9270; J2919; J7050; Q5104

== ENCOUNTER 2024-07-19 05:45 | Day surgery (SDC) | payer OTHER ==
[~2024-07-19] VITALS: Wt 107.3 kg
[2024-07-19] MEDS ORDERED: MethylPREDNISolone Sod Succ 125 MG Vial IV SCH (07:20)
[2024-07-19] MEDS ORDERED: DiphenhydrAMINE HCL 25 MG Cap PO SCH (07:20)
[2024-07-19 07:54] VITALS: BP 141/76
[2024-07-19] MEDS ORDERED: NS IV SCH (08:05)
[2024-07-19] MEDS ORDERED: INFLIXIMAB ABDA IV SCH (08:05)
== END 2024-07-19 09:47 | disposition home or self-care (01) ==
LOC: ATC 05:45
DX: L40.50 Arthropathic psoriasis, unspecified (principal); I10 Essential (primary) hypertension; E11.9 Type 2 diabetes mellitus without complications; K76.0 Fatty (change of) liver, not elsewhere classified; L40.9 Psoriasis, unspecified; Z79.4 Long term (current) use of insulin; Z79.899 Other long term (current) drug therapy
CPT/HCPCS: 96375; 96413; A9270; J2919; J7050; Q5104

== ENCOUNTER 2024-08-15 00:32 | Day surgery (SDC) | payer OTHER ==
[2024-08-15] MEDS ORDERED: MethylPREDNISolone Sod Succ 125 MG Vial IV SCH (06:45)
[2024-08-15] MEDS ORDERED: DiphenhydrAMINE HCL 25 MG Cap PO PRN (06:45)
[2024-08-15 08:04] VITALS: BP 140/83
[2024-08-15] MEDS ORDERED: INFLIXIMAB ABDA IV SCH (08:15)
[2024-08-15] MEDS ORDERED: NS IV SCH (08:15)
== END 2024-08-15 09:56 | disposition home or self-care (01) ==
LOC: ATC 00:32
DX: L40.50 Arthropathic psoriasis, unspecified (principal); I10 Essential (primary) hypertension; E11.9 Type 2 diabetes mellitus without complications; Z79.84 Long term (current) use of oral hypoglycemic drugs; Z79.899 Other long term (current) drug therapy
CPT/HCPCS: 96375; 96413; A9270; J2919; J7050; Q5104

== ENCOUNTER 2024-09-13 01:46 | Day surgery (SDC) | payer OTHER ==
[~2024-09-13] VITALS: Wt 107.0 kg
[2024-09-13] MEDS ORDERED: DiphenhydrAMINE HCL 25 MG Cap PO PRN (07:35)
[2024-09-13] MEDS ORDERED: MethylPREDNISolone Sod Succ 125 MG Vial IV SCH (07:35)
[2024-09-13 07:45] VITALS: BP 168/76
[2024-09-13] MEDS ORDERED: INFLIXIMAB ABDA IV SCH (07:50)
[2024-09-13] MEDS ORDERED: NS IV SCH (07:50)
== END 2024-09-13 09:26 | disposition home or self-care (01) ==
LOC: ATC 01:46
DX: L40.50 Arthropathic psoriasis, unspecified (principal); I10 Essential (primary) hypertension; E78.5 Hyperlipidemia, unspecified; E11.9 Type 2 diabetes mellitus without complications; Z79.84 Long term (current) use of oral hypoglycemic drugs; Z79.899 Other long term (current) drug therapy
CPT/HCPCS: 96375; 96413; A9270; J2919; J7050; Q5104